=== PATIENT | male | born 1995 | race Two or more races ===

== ENCOUNTER 2018-09-29 18:46 | Emergency (ER) | payer OTHER ==
[~2018-09-29] VITALS: Ht 167.6 cm; Wt 77.1 kg
[2018-09-29] MEDS ORDERED: Lidocaine 2% Visc 15ml soln ORAL ONE (19:00)
[2018-09-29] MEDS ORDERED: Mylanta II UD 30ml ORAL ONE (19:00)
[2018-09-29 19:03] VITALS: BP 130/83
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
[2018-09-29 19:13] LABS: BASOPHILS % (AUTO) 0.9 % (0.0-2.0); EOSINOPHILS % (AUTO) 2.7 % (0.0-3.0); HEMATOCRIT 43.8 % (42.0-52.0); HEMOGLOBIN 15.1 G/DL (14.2-18.0); LYMPHOCYTES % (AUTO) 41.3 % (20.0-45.0); MEAN CORPUSCULAR VOLUME 85 FL (80-99); MONOCYTES % (AUTO) 6.2 % (1.0-10.0); NEUTROPHILS % (AUTO) 48.9 % (45.0-75.0); PLATELET COUNT 369 K/UL (150-450); RED BLOOD COUNT 5.17 M/UL (4.70-6.10); RED CELL DISTRIBUTION WIDTH 10.9 % (11.6-14.8); WHITE BLOOD COUNT 11.6 K/UL (4.8-10.8)
[2018-09-29 19:22] LABS: ANION GAP 11 mmol/L (5-15); BLOOD UREA NITROGEN 13 mg/dL (7-18); CALCIUM 9.2 MG/DL (8.5-10.1); CARBON DIOXIDE 22 MMOL/L (21-32); CHLORIDE 105 MMOL/L (98-107); CREATININE 0.6 MG/DL (0.55-1.30); INR 0.9 (0.9-1.1); POTASSIUM 3.8 MMOL/L (3.5-5.1); SODIUM 138 MMOL/L (136-145)
[2018-09-29 19:27] LABS: ALANINE AMINOTRANSFERASE 60 U/L (12-78); ALBUMIN 3.7 G/DL (3.4-5.0); ALBUMIN/GLOBULIN RATIO 0.9 (1.0-2.7); ALKALINE PHOSPHATASE 101 U/L (46-116); ASPARTATE AMINO TRANSFERASE 24 U/L (15-37); BILIRUBIN,TOTAL 0.2 MG/DL (0.2-1.0)
[2018-09-29 19:39] LABS: APPEARANCE,URINE CLEAR; BILIRUBIN, URINE NEGATIVE (NEGATIVE); COLOR,URINE PALE YELLOW; GLUCOSE, URINE (UA) NEGATIVE (NEGATIVE); KETONES,URINE NEGATIVE (NEGATIVE); LEUKOCYTE ESTERASE ,URINE 1+ (NEGATIVE); NITRITE,URINE NEGATIVE (NEGATIVE); PH,URINE 8 (4.5-8.0); PROTEIN,URINE NEGATIVE (NEGATIVE); UROBILINOGEN,URINE NORMAL MG/DL (0.0-1.0)
[2018-09-29] MEDS ORDERED: PEPCID AC20 M2 PO (21:47)
[2018-09-29 21:59] VITALS: BP 130/83
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
--- NOTE | 2018-09-30 10:18 | Diagnostic Imaging Report ---
Indication: Epigastric pain Technique: Supine view of the abdomen Comparison: none Findings: Bowel gas pattern is unremarkable. No masses or unusual calcifications. The bones are unremarkable Impression: Negative
== END 2018-09-29 22:01 | disposition home or self-care (01) ==
LOC: EDBD 18:46 → EMR 19:08
DX: R10.13 Epigastric pain (principal); G82.20 Paraplegia, unspecified; R07.9 Chest pain, unspecified
CPT/HCPCS: 36415; 71045; 74018; 80053; 81003; 83690; 85025; 85610; 85730; 93005; 96361; 96374; 99284; S0028